=== PATIENT | female | born 1995 | race Caucasian/White ===

== ENCOUNTER → 2020-07-05 | Outpatient (CLI) | payer BC | LOC: KOH-I 11:45 | DX: J20.9 Acute bronchitis, unspecified (principal); K59.1 Functional diarrhea; Z03.818 Encounter for observation for suspected exposure to other biological agents ruled out | CPT/HCPCS: 71046 ==

== ENCOUNTER → 2021-08-30 | Outpatient (CLI) | payer BC | LOC: HEART 5 08:40 | DX: R00.1 Bradycardia, unspecified (principal); R53.83 Other fatigue; R42 Dizziness and giddiness; I27.20 Pulmonary hypertension, unspecified; I08.1 Rheumatic disorders of both mitral and tricuspid valves | CPT/HCPCS: 93306 ==

== ENCOUNTER → 2021-09-20 | Outpatient (CLI) | payer BC | LOC: EXRD 09-14 14:15 | DX: E04.9 Nontoxic goiter, unspecified (principal) | CPT/HCPCS: 76536 ==

== ENCOUNTER → 2021-11-10 | Outpatient (CLI) | payer BC | LOC: CATH 09:47 | DX: R07.89 Other chest pain (principal); R00.1 Bradycardia, unspecified; R53.83 Other fatigue; R42 Dizziness and giddiness; R00.2 Palpitations | CPT/HCPCS: J2250; J3010; J3370 ==